=== PATIENT | male | born 1995 | race Two or more races ===

== ENCOUNTER 2016-03-25 00:23 | Emergency (ER) | payer SELFPAY ==
[~2016-03-25] VITALS: Ht 160 cm; Wt 63.5 kg
[2016-03-25 01:48] LABS: Basophils # (auto) 0.1 uL; Basophils % (auto) 0.7 % (0.0-2.0); Eosinophils # (auto) 0.1 uL; Eosinophils % (auto) 0.5 % (0.0-7.0); Hematocrit 47.4 % (41.0-53.0); Hemoglobin 15.1 g/dL (13.5-17.5); Lymphocytes # (auto) 1.2 uL; Lymphocytes % (auto) 7.5 % (10.0-50.0); Mean Corpuscular Hemoglobin 28.8 pg (28.0-32.0); Mean Corpuscular Hgb Conc. 31.9 g/dL (32.0-36.0); Mean Corpuscular Volume 90.2 fL (80.0-100.0); Mean Platelet Volume 8.4 fL (7.4-10.4); Monocytes # (auto) 1.3 uL; Neutrophils # (auto) 13.7 uL; Neutrophils % (auto) 83.3 % (37.0-80.0); Platelet Count (auto) 322 10^3/uL (140-450); Red Cell Distribution Width 13.3 % (11.6-16.0); White Blood Cell 16.5 10^3/uL (4.4-10.8)
[2016-03-25 02:20] LABS: Albumin 4.7 g/dL (3.4-5.0); Anion Gap 8 (5-15); Aspartate Aminotransferase 57 U/L (15-37); BUN/Creatinine Ratio 8.7; Blood Urea Nitrogen 9 mg/dL (7-18); Calcium 9.3 mg/dL (8.5-10.1); Carbon Dioxide 30 mmol/L (21-32); Chloride 102 mmol/L (98-107); GFR African American 118 mL/min; GFR Non-African American 98 mL/min; Glucose 87 mg/dL (74-106); Potassium 4.3 mmol/L (3.5-5.1); Salicylate < 1.7 mg/dL (2.8-20.0); Sodium 140 mmol/L (136-145)
[2016-03-25 02:32] LABS: Alkaline Phosphatase 90 U/L (45-117); Bilirubin, Total 0.5 mg/dL (0.2-1.0); Total Protein 8.9 g/dL (6.4-8.2)
[2016-03-25 02:36] LABS: Acetaminophen < 2.0 ug/mL (10-30)
[2016-03-25 03:20] LABS: Urine Bilirubin Negative (Negative); Urine Blood Negative /uL (Negative); Urine Color Yellow (Yellow); Urine Glucose Normal (Normal); Urine Ketone Negative (Negative); Urine Nitrite Negative (Negative); Urine RBC 2 /hpf (0 - 3); Urine Urobilinogen Normal (Negative); Urine pH 8.5 (5.0-8.0)
[2016-03-25 03:52] VITALS: BP 104/60
[2016-03-25] MEDS ORDERED: cefTRIAXone 1GM/50ML D5W 50 ML IV ONE (05:30)
== END 2016-03-25 06:37 | disposition home or self-care (01) ==
LOC: ER 00:32
DX: J02.9 Acute pharyngitis, unspecified (principal); R51 Headache; J03.90 Acute tonsillitis, unspecified
CPT/HCPCS: 36415; 70450; 71010; 80053; 80320; 80329; 81001; 83735; 85025; 93005; 94761; 96365; 99285; G0434; J0696